=== PATIENT | male | born 1960 | race Caucasian/White ===

== ENCOUNTER → 2024-11-08 | Day surgery (SDC) | payer BC ==
[~2024-11-08] VITALS: Ht 182.9 cm; Wt 115.7 kg
[~2024-11-08] MED LIST: ACETAMINOPHEN 325MG TABLET PO PRN; ASPI-1497 PO; ATROPINE SULFATE 1MG/10ML SYR IV PRN; DIPHENHYDRAMINE 50MG/ML VIAL ONE; FENTANYL CITRATE/PF 50MCG/ML 2ML VIAL ONE; FURO-151 PO; HEPARIN 1000 UNITS/ML 10ML ONE; IODIXANOL 320MG/ML 100 ML BOTTLE IV ONE; LIDOCAINE HCL 1% 20ML VIAL ONE; METO25TA3 PO; MIDAZOLAM HCL 2 MG/2 ML VIAL ONE; SACU1TAB MT; VERAPAMIL HCL 2.5 MG/1 ML 2ML VIAL IV ONE
[2024-11-08 06:50] LABS: BASOPHILS % 0.8 % (0.0-2.0); EOSINOPHILS % 0.7 % (0.0-5.0); HEMATOCRIT. 45.9 % (42.0-52.0); HEMOGLOBIN. 15.3 g/dL (14.0-18.0); LYMPHOCYTES % 26.3 % (20.0-50.0); MEAN CORPUSCULAR HEMOGLOBIN 29.6 pg (28.0-32.0); MEAN CORPUSCULAR HGB CONC 33.3 g/dL (31.0-37.0); MEAN CORPUSCULAR VOLUME 88.8 fL (80.0-94.0); MEAN PLATELET VOLUME 8.5 fl (7.4-10.4); MONOCYTES % 10.8 % (2.0-8.0); NEUTROPHILS % 61.4 % (40.0-76.0); PLATELET 229 x1000/uL (130-400); RED BLOOD CELL COUNT 5.17 mill/uL (4.7-6.1); RED CELL DISTRIBUTION WIDTH 14.2 % (11.6-14.6); WHITE BLOOD COUNT 6.8 x1000/uL (4.5-11.0)
[2024-11-08 07:00] LABS: CHLORIDE 107 mEq/L (98-107); SODIUM 145 mEq/L (136-145)
[2024-11-08 07:01] LABS: CARBON DIOXIDE 28 mEq/L (21-32)
[2024-11-08 07:02] LABS: CALCIUM 9.3 mg/dL (8.7-10.4)
[2024-11-08 07:06] LABS: CREATININE 0.9 mg/dL (0.6-1.3); GLUCOSE 105 mg/dL (70-105); UREA NITROGEN BLOOD 22 mg/dL (9-23)
[2024-11-08 07:07] LABS: PROTHROMBIN TIME 10.7 sec (9.6-11.0)
[2024-11-08] MEDS: SODIUM CHLORIDE 0.45% 500 ML IV ONE (07:53)
== END | disposition home or self-care (01) ==
LOC: CCL 06:01 → EDSEX 08:30
PROVIDERS: ATTEND Internal Medicine
DX: I25.110 Atherosclerotic heart disease of native coronary artery with unstable angina pectoris (principal); I11.0 Hypertensive heart disease with heart failure; I50.21 Acute systolic (congestive) heart failure; I42.8 Other cardiomyopathies; Z79.82 Long term (current) use of aspirin; Z79.899 Other long term (current) drug therapy; Z98.890 Other specified postprocedural states
CPT/HCPCS: 93458; 80048; 85025; 85347; 85610; 36415; 93571; 93005; C1893; C1769 ×3; J3010; Q9967; J1200; J1644 ×2; J3490 ×2; J2250; C1887 ×2; 99152; 99153; A4606; G0500